=== PATIENT | female | born 1980 | race African-American/Black ===

== ENCOUNTER 2019-05-08 18:00 | Emergency (ER) | payer OTHER ==
[2019-05-08 18:10] VITALS: Ht 157.5 cm
[2019-05-08] MEDS ORDERED: HYDROCODON-ACE1 EAC7 PO (18:55)
[2019-05-08 19:29] VITALS: BP 133/104
== END 2019-05-08 19:29 | disposition home or self-care (01) ==
LOC: D.ER 18:00
DX: S82.891A Other fracture of right lower leg, initial encounter for closed fracture (principal); W17.89XA Other fall from one level to another, initial encounter